=== PATIENT | female | born 1960 | race Hispanic/Latino ===

== ENCOUNTER 2017-10-02 10:02 | Outpatient (CLI) | payer BC ==
--- NOTE | 2017-10-02 11:17 | Ultrasound Report ---
RIGHT BREAST ULTRASOUND: 10/02/17 10:02:00 CLINICAL: A new mammographic asymmetry. COMPARISON: 09/27/17 and 09/10/17 mammograms. FINDINGS: Ultrasound of the right breast(including all four quadrants and the retroareolar area) was performed and demonstrated multiple benign cysts and no solid mass or shadowing. A cyst at 2 o'clock 3 cm from the nipple measures 5 x 4 x 3 mm. It has a slightly irregular margin that correlates with the micro-lobulation of the mammographic density. A benign cyst at 3 o'clock 4 cm from the nipple measures 3 x 3 x 2 mm. A benign cyst at 12 o'clock 2 cm from the nipple measures 4 x 3 x 4 mm. A benign cyst at 10 o'clock 5 cm from nipple measures 3 x 2 x 2 mm. A benign cyst at 10 o'clock 5 cm from the nipple measures 6 x 4 x 2 mm and a benign cyst at 10 o'clock 4 cm from the nipple measures 6 x 5 x 5 mm. IMPRESSION: A benign cyst at 2 o'clock 3 cm from the nipple which correlates with the abnormality on the recent mammograms. BI-RADS 2 - - Benign RECOMMENDATION: Routine mammographic screening in one year.
== END 2017-10-02 10:03 | disposition home or self-care (01) ==
LOC: SPVWC 10:02
PROVIDERS: ATTEND Surgery
DX: N60.01 Solitary cyst of right breast (principal)

== ENCOUNTER 2020-03-11 09:30 | Outpatient (CLI) | payer BC ==
--- NOTE | 2020-03-11 12:10 | Mammography Report ---
DIGITAL SCREENING MAMMOGRAM WITH TOMOSYNTHESIS WITH CAD, 03/11/2020 CLINICAL INFORMATION / INDICATION: Routine Screening Mammography. TECHNIQUE: Digital bilateral 2D and 3D mammography with tomosynthesis was obtained in the craniocaud al and mediolateral oblique projections. Computer-Aided Detection (CAD) analysis was used for interp retation of this study. COMPARISON: 01/23/2019, 01/23/2019, 09/10/2017, FINDINGS: Breast Density: There are scattered areas of fibroglandular density. No dominant mass, suspicious calcifications, or architectural distortion in either breast. There is likely benign changing nodularity in both breasts. Several of these nodules have been presen t for many years and appear well-circumscribed which may reflect cystic change. IMPRESSION: No mammographic evidence of malignancy. Follow up recommendation: Routine yearly BI-RADS Category 2: Benign. A "normal" or negative report should not discourage follow up or biopsy of a clinically significant f inding. A written summary of these findings will be mailed to the patient. The patient will be entered into a mammography reporting system which will generate a reminder letter for the patient's next appointmen t at the appropriate interval. The [employer] recommends yearly mammograms starting at age 40 and continuing as l melanie as a woman is in good health. Breast MRI is recommended for women with an approximate 20-25% or greater lifetime risk of breast cancer, including women with a strong family history of breast or ova samira cancer or who have been treated for Hodgkin's disease. Signer Name: Navi Starkey MD Signed: 03/11/2020 12:05 PM Workstation Name: [id number]
== END 2020-03-11 09:31 | disposition home or self-care (01) ==
LOC: SPVWC 09:30
PROVIDERS: ATTEND Surgery
DX: Z12.31 Encounter for screening mammogram for malignant neoplasm of breast (principal)
CPT/HCPCS: 77063; 77067

== ENCOUNTER 2021-03-15 16:11 | Outpatient (CLI) | payer BC ==
--- NOTE | 2021-03-16 13:13 | Mammography Report ---
DIGITAL SCREENING MAMMOGRAM WITH CAD, 03/15/2021 CLINICAL INFORMATION / INDICATION: Routine screening mammography. SCREENING MAMMO Z12.31 TECHNIQUE: Digital bilateral 2D mammography was obtained in the craniocaudal and mediolateral obliqu e projections. This examination was interpreted with the benefit of Computer-Aided Detection analysis . COMPARISON: 09/10/2017 through 03/11/2020. FINDINGS: Breast Density: There are scattered areas of fibroglandular density. No dominant mass, suspicious calcifications, or architectural distortion in either breast. There is benign-appearing changing nodularity bilaterally. IMPRESSION: No mammographic evidence of malignancy. Follow up recommendation: Routine yearly BI-RADS Category 2: BENIGN. A "normal" or negative report should not discourage follow up or biopsy of a clinically significant f inding. A written summary of these findings will be mailed to the patient. The patient will be entered into a mammography reporting system which will generate a reminder letter for the patient's next appointmen t at the appropriate interval. The [employer] recommends yearly mammograms starting at age 40 and continuing as l melanie as a woman is in good health. Breast MRI is recommended for women with an approximate 20-25% or greater lifetime risk of breast cancer, including women with a strong family history of breast or ova samira cancer or who have been treated for Hodgkin's disease. Signer Name: Prakash Gruber MD Signed: 03/16/2021 1:09 PM Workstation Name: [id number]
== END 2021-03-15 16:12 | disposition home or self-care (01) ==
LOC: SPVWC 16:11
PROVIDERS: ATTEND Surgery
DX: Z12.31 Encounter for screening mammogram for malignant neoplasm of breast (principal); N64.89 Other specified disorders of breast
CPT/HCPCS: 77067